=== PATIENT | female | born 1955 | race Caucasian/White ===

== ENCOUNTER → 2017-01-27 | Outpatient (CLI) | payer MEDICARE, OTHER ==
[~2017-01-27] MED LIST: ALEVE220 MG PO; ALPRAZOLAM0.25 MG PO; AMBIEN 5MG TABLE5 MG PO; AMITRIPTYLINE10 MG PO; CYMBALTA20 MG PO; EFFEXOR75 MG PO; FLEXERIL5 MG PO; HYDRALAZINE; LEVOTHYROXINE PO; LORTAB; PHENERGAN 25 TA25 MG PO; PROTONIX40 MG PO; TRAMADOL; ULTRAM50 MG PO; [UNRECOGNIZED DRUG - REMARK]
== END ==
LOC: MC.RAD 14:05
DX: Z12.31 Encounter for screening mammogram for malignant neoplasm of breast (principal)

== ENCOUNTER 2018-03-18 13:57 | Emergency (ER) | payer MEDICARE, OTHER ==
[2018-03-18 14:01] VITALS: TEMP 97.8
[2018-03-18 14:28] LABS: BASO # 0.1 (0.0-0.2); EOS # 0.2 (0.0-0.7); GRAN # 4.7 (1.4-6.5); HEMATOCRIT 34.9 % (37.0-47.0); HEMOGLOBIN 11.7 g/dl (12.5-16.0); LYMPH # 2.3 (1.2-3.4); LYMPH % 29.1 % (20.0-51.0); MEAN CELL VOLUME 90 fl (80.0-100.0); MEAN CORPUSCULAR HEMOGLOBIN 30 pg (27.0-31.0); MEAN CORPUSCULAR HGB CONC 34 g/dl (33.0-37.0); MEAN PLATELET VOLUME 9.9 fl (7.4-10.4); MONO # 0.7 (0.1-0.6); MONO % 8.5 % (1.7-9.3); PLATELET COUNT 158 K/mm3 (130-400); RED BLOOD COUNT 3.89 M/mm3 (4.10-5.30); REDCELL DISTRIBUTION WIDTH-CV 13.2 % (11.5-14.5)
[2018-03-18 14:33] LABS: PROTHROMBIN TIME 11.1 SECONDS (9.7-12.8)
[2018-03-18 14:36] LABS: PARTIAL THROMBOPLASTIN TIME 30.7 SECONDS (26.0-37.0)
[2018-03-18 14:39] LABS: ALANINE AMINOTRANSFERASE 29 U/L (9-52); ALBUMIN 3.6 gm/dL (3.5-5.0); ALKALINE PHOSPHATASE 90 U/L (50-136); ANION GAP 11 mmol/L (7-16); AST,SGOT 28 U/L (15-37); BILIRUBIN,TOTAL 0.6 mg/dL (0.0-1.0); BLOOD UREA NITROGEN 21 mg/dL (7-17); CALCIUM 9.2 mg/dL (8.4-10.2); CARBON DIOXIDE 26 mmol/L (22-30); CHLORIDE 102 mmol/L (98-107); CREATININE, serum 0.94 mg/dL (0.52-1.25); GLUCOSE 88 mg/dL (74-106); POTASSIUM 3.6 mmol/L (3.4-5.0); SODIUM 139 mmol/L (137-145); TOTAL PROTEIN 6.6 gm/dL (6.4-8.2)
[2018-03-18 14:51] LABS: TROPONIN-I < 0.012 ng/mL (0.000-0.034)
[2018-03-18] MEDS ORDERED: LEXAPRO20 MG PO (15:15)
[2018-03-18] MEDS ORDERED: SYNTHROID0.088 MG/T PO (15:16)
[2018-03-18] MEDS ORDERED: ATIVAN 0.50.5 MG/TAB PO (15:17)
[2018-03-18 17:40] VITALS: BP 126/75; PULSE 67
== END 2018-03-18 17:43 | disposition home or self-care (01) ==
LOC: COL.ER 13:57
PROVIDERS: Family Medicine
DX: R07.89 Other chest pain (principal)
CPT/HCPCS: C9113; J7030

== ENCOUNTER 2018-06-02 13:50 | Emergency (ER) | payer MEDICARE, OTHER ==
[~2018-06-02] VITALS: Ht 165.1 cm; Wt 61.4 kg
[~2018-06-02 13:50] MED LIST changes: +ATIVAN 0.50.5 MG/TAB PO; +LEXAPRO20 MG PO; +SYNTHROID0.088 MG/T PO
[2018-06-02 13:53] VITALS: BP 106/55; PULSE 73; TEMP 98.7
== END 2018-06-02 14:53 | disposition left against medical advice (07) ==
LOC: COL.ER 13:50
DX: R03.1 Nonspecific low blood-pressure reading (principal)

== ENCOUNTER → 2018-07-07 | Outpatient (CLI) | payer MEDICARE, OTHER | LOC: MHCPAIN 09:46 | DX: G89.29 Other chronic pain (principal); M47.817 Spondylosis without myelopathy or radiculopathy, lumbosacral region; M53.3 Sacrococcygeal disorders, not elsewhere classified; M50.90 Cervical disc disorder, unspecified, unspecified cervical region | CPT/HCPCS: G0463 ==

== ENCOUNTER 2018-08-31 11:15 | Outpatient (RCR) | payer MEDICARE, OTHER | END 2018-10-18 | disposition home or self-care (01) | LOC: WSPT | DX: M50.90 Cervical disc disorder, unspecified, unspecified cervical region (principal); M47.817 Spondylosis without myelopathy or radiculopathy, lumbosacral region; M53.3 Sacrococcygeal disorders, not elsewhere classified; G89.29 Other chronic pain; Z79.891 Long term (current) use of opiate analgesic; Z79.899 Other long term (current) drug therapy | CPT/HCPCS: G8978-GP; G8979-GP ==

== ENCOUNTER → 2018-12-24 | Outpatient (CLI) | payer MEDICARE, OTHER ==
[2018-12-24 08:03] LABS: CALCIUM 9.8 mg/dL (8.4-10.2); CREATININE, serum 1.09 (0.52-1.25)
== END ==
LOC: COL.RAD 06:31
PROVIDERS: Nurse Practitioner
DX: G89.29 Other chronic pain (principal); R51 Headache; R26.89 Other abnormalities of gait and mobility
CPT/HCPCS: A9585

== ENCOUNTER → 2019-03-29 | Outpatient (CLI) | payer MEDICARE, OTHER | LOC: MC.RAD 14:06 | DX: Z12.31 Encounter for screening mammogram for malignant neoplasm of breast (principal); N64.89 Other specified disorders of breast ==

== ENCOUNTER → 2019-04-07 | Outpatient (CLI) | payer MEDICARE, OTHER | LOC: MC.RAD 12:54 | DX: N64.89 Other specified disorders of breast (principal) ==

== ENCOUNTER → 2019-07-05 | Outpatient (CLI) | payer MEDICARE, OTHER | LOC: COL.RAD 13:43 | DX: M54.17 Radiculopathy, lumbosacral region (principal); M54.42 Lumbago with sciatica, left side; M54.41 Lumbago with sciatica, right side ==

== ENCOUNTER → 2019-07-08 | Outpatient (CLI) | payer MEDICARE, OTHER | LOC: COL.RAD 08:34 | DX: M54.17 Radiculopathy, lumbosacral region (principal); M12.88 Other specific arthropathies, not elsewhere classified, other specified site; M48.061 Spinal stenosis, lumbar region without neurogenic claudication ==

== ENCOUNTER → 2020-05-02 | Outpatient (CLI) | payer MEDICARE, OTHER | LOC: MC.RAD 04-13 09:45 | DX: Z12.31 Encounter for screening mammogram for malignant neoplasm of breast (principal) ==

== ENCOUNTER → 2021-08-06 | Outpatient (CLI) | payer MEDICARE | LOC: COL.LAB 13:44 → COL.RAD 13:55 | DX: M41.20 Other idiopathic scoliosis, site unspecified (principal); M41.86 Other forms of scoliosis, lumbar region; M41.34 Thoracogenic scoliosis, thoracic region ==

== ENCOUNTER → 2021-08-14 | Outpatient (CLI) | payer MEDICARE, OTHER | LOC: MC.RAD 14:29 | DX: Z12.31 Encounter for screening mammogram for malignant neoplasm of breast (principal) ==

== ENCOUNTER 2022-02-12 14:43 | Emergency (ER) | payer MEDICARE ==
[~2022-02-12] VITALS: Ht 162.6 cm; Wt 70.0 kg
[2022-02-12 14:50] VITALS: BP 152/86; TEMP 97.6
[2022-02-12] MEDS ORDERED: DOXYCYCLINE 10100 MG PO (15:59)
[2022-02-12] MEDS ORDERED: ZOFRAN ODT4 MG PO (15:59)
[2022-02-12 16:20] VITALS: PULSE 75
== END 2022-02-12 16:20 | disposition home or self-care (01) ==
LOC: COL.ER 14:43
DX: S51.801A Unspecified open wound of right forearm, initial encounter (principal); R59.0 Localized enlarged lymph nodes; Z88.0 Allergy status to penicillin; Z88.2 Allergy status to sulfonamides; Z91.040 Latex allergy status; W54.8XXA Other contact with dog, initial encounter

== ENCOUNTER 2023-09-30 15:31 | Emergency (ER) | payer MEDICARE ==
[~2023-09-30] VITALS: Ht 165.1 cm; Wt 65.9 kg
[~2023-09-30 15:31] MED LIST changes: +DOXYCYCLINE 10100 MG PO; +ZOFRAN ODT4 MG PO
--- NOTE | 2023-09-30 18:57 | NUR ---
RN HAVING ISSUES WITH TX ORDER, WILL BACK CHART TIME. [id number]
[2023-09-30 19:17] VITALS: BP 108/86; PULSE 86; TEMP 97.4
== END 2023-09-30 19:17 | disposition home or self-care (01) ==
LOC: COL.ER 15:31
DX: T18.128A Food in esophagus causing other injury, initial encounter (principal); Z91.040 Latex allergy status
CPT/HCPCS: J2704; J3010

== ENCOUNTER 2024-07-04 12:22 | Emergency (ER) | payer MEDICARE ==
[~2024-07-04] VITALS: Ht 162.6 cm; Wt 64.1 kg
[2024-07-04 12:30] VITALS: TEMP 97.9
[2024-07-04 13:05] LABS: BASO % 0.4 % (0.0-2.0); EOS # 0.1 K/mm3 (0.0-0.7); EOS % 0.6 % (0.0-4.0); GRAN # 7.3 K/mm3 (1.4-6.5); GRAN % 73.5 % (42.2-75.2); HEMATOCRIT 42.9 % (37.0-47.0); HEMOGLOBIN 14.1 g/dl (12.5-16.0); LYMPH # 1.6 K/mm3 (1.2-3.4); LYMPH % 15.6 % (20.0-51.0); MEAN CELL VOLUME 95 fl (80.0-100.0); MEAN CORPUSCULAR HEMOGLOBIN 31 pg (27-31); MEAN CORPUSCULAR HGB CONC 33 g/dl (33.0-37.0); MEAN PLATELET VOLUME 9.5 fl (7.4-10.4); MONO # 0.9 K/mm3 (0.1-0.6); MONO % 9.1 % (1.7-9.3); PLATELET COUNT 170 K/mm3 (130-400); RED BLOOD COUNT 4.53 M/mm3 (4.10-5.30); REDCELL DISTRIBUTION WIDTH-CV 13.2 % (11.5-14.5)
[2024-07-04 13:20] LABS: ALANINE AMINOTRANSFERASE 22 U/L (0-55); ALBUMIN 3.5 g/dL (3.4-4.8); ANION GAP 10 mmol/L (7-16); AST,SGOT 20 U/L (5-34); BILIRUBIN,TOTAL 0.5 mg/dL (0.2-1.2); BLOOD UREA NITROGEN 28 mg/dL (10-20); CALCIUM 9.3 mg/dL (8.4-10.2); CHLORIDE 111 mEq/L (98-107); CREATININE, serum 0.94 mg/dL (0.57-1.11); GLUCOSE 57 mg/dL (70-99); POTASSIUM 3.5 mEq/L (3.5-4.5); SODIUM 143 mEq/L (136-145); TOTAL PROTEIN 6.5 g/dl (6.2-8.1)
[2024-07-04 13:37] LABS: TROPONIN-I < 0.010 ng/mL (0.00-0.033)
[2024-07-04 13:56] LABS: ALKALINE PHOSPHATASE 81 U/L (40-150)
[2024-07-04 15:06] VITALS: BP 180/97; PULSE 72
== END 2024-07-04 15:06 | disposition home or self-care (01) ==
LOC: COL.ER 12:22
PROVIDERS: Personal Emergency Response Attendant
DX: R07.89 Other chest pain (principal); Z87.891 Personal history of nicotine dependence; Z91.040 Latex allergy status